=== PATIENT | female | born 1950 | race Caucasian/White ===

== ENCOUNTER 2018-12-29 15:17 | Inpatient (IN) | payer MEDICARE, BC ==
[~2018-12-29] VITALS: Ht 152.4 cm; Wt 94.8 kg
[~2018-12-29 15:17] MED LIST: ? B/P MED; ADULT LOW DOSE81 MG PO; B COMPLEX1 EACH PO; CENTRUM COMPLE1 EACH PO; CYCLOBENZAPRINE; DAILY VITAMIN; DARVOCET-N 1001 EACH PO; DIOVAN HCT 3201 EACH PO; GLUCOPHAGE XR500 MG PO; HYDROCODON-ACE1 EACH PO; LIPITOR; LIPITOR20 MG PO; METFORMIN; MOBIC15 MG PO; NEURONTIN 300M300 M2 PO; NORCO 5-325 TA1 EACH PO; PREDNISONE 20 M20 M1 PO; RELAFEN750 MG PO; VICODIN 5-5001 EACH PO; VITAMIN D-32000 UNIT PO; ZOLOFT; ZOLOFT100 MG PO
[2018-12-29 15:27] VITALS: BP 110/44
[2018-12-29] MEDS ORDERED: CLOMIPRAMINE HC25 M1 PO (15:33)
[2018-12-29] MEDS ORDERED: SYNTHROID75 MCG PO (15:34)
[2018-12-29] MEDS ORDERED: LEXAPRO 10 MG T10 M1 PO (15:34)
[2018-12-29] MEDS ORDERED: RAZADYNE 4 MG TA4 M1 PO (15:34)
[2018-12-29] MEDS ORDERED: MELATIN3 MG PO (15:35)
[2018-12-29] MEDS ORDERED: POTASSIUM AC PO (15:35)
[2018-12-29] MEDS ORDERED: TOLTERODINE TART4 MG PO (15:35)
[2018-12-29] MEDS ORDERED: DIOVAN 80 MG TA80 M1 PO (15:36)
[2018-12-29] MEDS ORDERED: ONDANSETRON HCL4 M2 PO (15:36)
[2018-12-29 15:47] LABS: ABSOLUTE EOSINOPHILS 0.2 thou/uL (0.0-0.7); ABSOLUTE MONOCYTES 0.3 thou/uL (0.0-1.2); ABSOLUTE NEUTROPHILS 3.8 thou/uL (1.6-8.1); BASOPHILS 0.9 %; EOSINOPHILS 3.3 %; HEMATOCRIT 43.6 % (37.0-47.0); HEMOGLOBIN 14.7 gm/dL (12.0-15.0); LYMPHOCYTES 18.5 %; MCH 30.3 pg (26.0-34.0); MCHC 33.7 g/dL (28.0-37.0); MCV 90.1 fL (80.0-100.0); MONOCYTES 5.5 %; MPV 8.9 fl. (7.2-11.1); NUCLEATED RBCS 0 /100WBC; PLATELET COUNT* 201 thou/uL (150-400); POLYS 71.8 %; RBC 4.84 mil/uL (4.20-5.00); RDW-CV 12.7 % (10.5-14.5); WBC 5.3 thou/uL (4.0-11.0)
[2018-12-29 15:53] LABS: APTT 25.7 Seconds (25.0-31.3); PROTIME 10.5 Seconds (9.20-11.50)
[2018-12-29 15:58] LABS: ANION GAP 8 mmol/L (7-16); BUN 17 mg/dL (7-18); CALCIUM 9.3 mg/dL (8.5-10.1); CHLORIDE 109 mmol/L (98-107); CO2 26 mmol/L (21-32); CREATININE 0.6 mg/dL (0.6-1.3); GLUCOSE 130 mg/dL (70-99); POTASSIUM 4.7 mmol/L (3.5-5.1); SODIUM 143 mmol/L (136-145)
[2018-12-29 16:01] LABS: ALBUMIN 3.4 g/dL (3.4-5.0); ALKALINE PHOSPHATASE 95 U/L (46-116); NT-PRO BRAIN NAT PEPTIDE 209 pg/mL (<300); SGOT 19 U/L (15-37); SGPT 24 U/L (30-65); TOTAL BILIRUBIN 0.4 mg/dL (<0.1-1.0); TOTAL PROTEIN 6.9 g/dL (6.4-8.2); TROPONIN-I LEVEL <0.06 ng/mL (<0.06)
[2018-12-29 16:25] LABS: URINE BILIRUBIN NEGATIVE (Negative); URINE BLOOD NEGATIVE (Negative); URINE CLARITY CLEAR; URINE COLOR YELLOW; URINE GLUCOSE-RANDOM NEGATIVE (Negative); URINE KETONES NEGATIVE (Negative); URINE LEUKOCYTES-REFLEX 1+ (Negative); URINE NITRITE-REFLEX NEGATIVE (Negative); URINE PROTEIN NEGATIVE (Negative); URINE UROBILINOGEN 0.2 E.U./dl (0.2-1.0)
[2018-12-29 16:34] LABS: HYALINE CASTS 4-10 Moderate /LPF (None Seen); SQUAMOUS >10 Many /LPF (0-3)
[2018-12-29 16:35] LABS: BACTERIA-REFLEX 1-9 Few /HPF (None Seen); CRYSTALS None Seen /LPF (None Seen); MUCUS None Seen strn/LPF (None Seen); URINE RBC None Seen /HPF (0-2); URINE WBC-REFLEX 0-5 Rare /HPF (0-5)
--- NOTE | 2018-12-29 18:58 | NUR ---
REPORT RECEIVED FROM DEION RN, AT BEDSIDE PT ALERT ORIENT TO SELF, FORGETFULNESS; SPOUSE VOICED CONCERN RELATED TO WEAKNESS AND RISK FOR FALL, REASSURED WE WILL PLACE HER CLOSE TO THE NURSES STATION
[2018-12-29 19:24] VITALS: BP 111/40
[2018-12-29 20:04] VITALS: BP 139/45
[2018-12-30 05:37] LABS: ABSOLUTE BASOPHILS 0.1 thou/uL (0.0-0.2); ABSOLUTE EOSINOPHILS 0.2 thou/uL (0.0-0.7); ABSOLUTE LYMPHOCYTES 2.2 thou/uL (0.8-5.3); ABSOLUTE MONOCYTES 0.6 thou/uL (0.0-1.2); ABSOLUTE NEUTROPHILS 3.1 thou/uL (1.6-8.1); EOSINOPHILS 3.2 %; HEMATOCRIT 37.9 % (37.0-47.0); HEMOGLOBIN 12.8 gm/dL (12.0-15.0); MCH 30.1 pg (26.0-34.0); MCHC 33.7 g/dL (28.0-37.0); MCV 89.2 fL (80.0-100.0); MONOCYTES 9.7 %; MPV 8.7 fl. (7.2-11.1); NUCLEATED RBCS 0 /100WBC; PLATELET COUNT* 175 thou/uL (150-400); POLYS 50.1 %; RBC 4.25 mil/uL (4.20-5.00); RDW-CV 12.5 % (10.5-14.5); WBC 6.1 thou/uL (4.0-11.0)
--- NOTE | 2018-12-30 05:40 | NUR ---
PATIENT IS ORIENTED TO PERSON, WAS CONFUSED TRYING TO CALL . SHE WAS NOT ABLE TO SLEEP GAVE HER MELATONIN AROUND 0100 AFTER CALLING FOR ORDER. SHE WAS CONFUSED ABOUT THE CATHETER AND HAVING TO USE THE RESTROOM. SHE WAS ABLE GET SOME REST AFTER THE MELATONIN. SHE REPORTED NO PAIN. ENCOURAGED FLUIDS AND REST. FALL PRECAUTIONS IN PLACE. WILL CONTINUE TO MONITOR.
[2018-12-30 05:50] LABS: CALCIUM 8.8 mg/dL (8.5-10.1); CREATININE 0.4 mg/dL (0.6-1.3); POTASSIUM 3.9 mmol/L (3.5-5.1)
[2018-12-30 07:55] VITALS: BP 110/40
--- NOTE | 2018-12-30 12:20 | NUR ---
SPOKE WITH PT.AND AT BEDSIDE. PT.CAN ANSWER QUESTIONS,MOSTLY ACCURATE. STATES CORRECT ANSWER IF INACCURATE. SHE HAS BECOME WEAK DURING THE SUMMER. PT. HAS A WALKER,CANE,SHOWER CHAIR,SIDE RAIL ON BED AND PLATFORM ON SIDE OF BED TO HELP HER GET IN AND OUT OF BED. DOES ALL OF THE CHORES AT HOME. DISCUSSED SNF WTIH THEM. PT.SAID THE ONE I WAS AT WAS F-----G BAD! THEY ARE BAS---DS! SAID THEY WERE NOT VERY ATTENTIVE OR HELPED HER THERAPY [place]. HE WOULD LIKE REFERRAL MADE TO [facility]. CM CALLED [facility] AND FAXED REFERRAL TO HER [phone]. WAITING OT EVAL DOCUMENTATION.
[2018-12-30] MEDS ORDERED: CLONAZEPAM 0.50.5 M1 PO (15:39)
[2018-12-30 16:00] VITALS: BP 129/77
--- NOTE | 2018-12-30 17:46 | NUR ---
PATIENT RESTING IN BED. PATIENT IS UP WITH ASSIST OF ONE WITH GAIT BELT AND WALKER. PATIENT DENIES ANY PAIN. BRICE REMOVED THIS AM. PATIENT IS INCONTINENT OF BOWEL AND BLADDER. PATIENT IS FORGETFUL AND ANXIOUS. PATIENT DENIES ANY NEEDS AT THIS TIME. CALL LIGHT WITHIN REACH.
--- NOTE | 2018-12-30 18:13 | EKG ---
[place] [address] ELECTROCARDIOGRAM REPORT Name: MERVIN YOUNG Room: [address] ADM IN .R.#: [id number] Admission: 12/29/18 Attend Phys: Yandel Longoria MD Discharge: Date of : 48 Report #: [id number] THIS REPORT FOR: //name// [facility] ED Test Date: 2018-12-29 Test Time: 15:28:32 Pat Name: MERVIN YOUNG Department: Room: [facility] Gender: F Counter Professional: MARIO : 1950 Requested By: Eligio Almaraz Order Number: [id number] MD: Moncho Salomon Measurements Intervals [place] Rate: 62 P: 40 TX: 153 QRS: 34 QRSD: 106 T: 75 QT: 415 QTc: 422 Interpretive Statements Sinus rhythm No previous ECG available for comparison Electronically Signed On 12-30-2018 18:13:30 CDT by Moncho Salomon [email or web address] <ELECTRONICALLY SIGNED> By: Moncho Salomon MD, [facility] 12/30/18 1813 1528 1528 Moncho Salomon MD, FACC /EPI
[2018-12-30 21:50] VITALS: BP 106/41
[2018-12-31 04:05] LABS: ABSOLUTE BASOPHILS 0.1 thou/uL (0.0-0.2); ABSOLUTE EOSINOPHILS 0.2 thou/uL (0.0-0.7); ABSOLUTE LYMPHOCYTES 2.5 thou/uL (0.8-5.3); ABSOLUTE MONOCYTES 0.6 thou/uL (0.0-1.2); ABSOLUTE NEUTROPHILS 2.4 thou/uL (1.6-8.1); EOSINOPHILS 4.2 %; HEMATOCRIT 37.3 % (37.0-47.0); HEMOGLOBIN 12.6 gm/dL (12.0-15.0); LYMPHOCYTES 43.1 %; MCH 30.6 pg (26.0-34.0); MCHC 33.7 g/dL (28.0-37.0); MCV 90.7 fL (80.0-100.0); MONOCYTES 9.7 %; MPV 9.1 fl. (7.2-11.1); NUCLEATED RBCS 0 /100WBC; PLATELET COUNT* 171 thou/uL (150-400); RBC 4.11 mil/uL (4.20-5.00); RDW-CV 12.2 % (10.5-14.5); WBC 5.8 thou/uL (4.0-11.0)
[2018-12-31 04:17] LABS: ALBUMIN 2.8 g/dL (3.4-5.0); CALCIUM 8.9 mg/dL (8.5-10.1); CREATININE 0.5 mg/dL (0.6-1.3); POTASSIUM 3.8 mmol/L (3.5-5.1); TOTAL BILIRUBIN 0.2 mg/dL (<0.1-1.0); TOTAL PROTEIN 5.9 g/dL (6.4-8.2)
--- NOTE | 2018-12-31 05:44 | NUR ---
PT CONFUSED & FORGETFUL, CRIES WITH NO REASON. PT DENIED PAIN. MEDS GIVEN ORDERED. PT PULLED HER IV AGAIN, AND DONT EVEN REMEMBER. HOURLY ROUNDINGS COMPLETED. WILL CONTINUE TO MONITOR.
[2018-12-31 07:45] VITALS: BP 115/33
[2018-12-31 10:24] VITALS: BP 115/33
[2018-12-31] MEDS ORDERED: VALPROIC ACID250 MG PO (14:16)
--- NOTE | 2018-12-31 17:27 | NUR ---
PATIENT RESTING IN BED. PATIENT DENIES ANY PAIN. PATIENT HAS BEEN CONFUSED DANIELA. PATIENT UNABLE TO GET UP TO CHAIR TODAY DUE TO INABILITY TO TAKE STEPS AND FEAR OF FALLING. PATIENT HAS GOOD APPETITE. DISCHARGE PENDING INSURANCE APPROVAL TO [facility]. PATIENT DENIES ANY NEEDS AT THIS TIME. CALLL LIGHT WITHIN REACH. BED ALARM ON.
[2018-12-31 20:10] VITALS: BP 137/32
--- NOTE | 2019-01-01 05:14 | NUR ---
PT ORIENTED TIMES 2-3, SLEEPING QUIETLY THROUGHT THE NIGHT. MEDS GIVEN ORDERED. NO C/O PAIN. PT UP TO THE COMMODE WITH MAX ASSIST. HOURLY ROUNDING, TURNS COMPLETED. WILL CONTINUE TO MONITOR.
[2019-01-01 08:00] VITALS: BP 119/54
--- NOTE | 2019-01-01 11:00 | NUR ---
PT.HAS DISCHARGE ORDERS TO GO TO SKILLED BED AT [facility]. NOTIFIED ZAY DUONG/[facility]. SHE WILL ARRANGE [facility] WITH SECURE TRANSORTATION FOR 1:00. FAXED DISCHARGE ORDERS,SUMMARY,MED LIST AND [id number] FORM TO HER AT [phone]. NOTIFIED PT.AND IN ROOM. GAVE A COPY OF HER DISCHARGE INSTRUCTIONS. CHART COPIED TO GO WITH PT. RIKY BLISS TO CALL REPORT.
[2019-01-01] MEDS ORDERED: KLONOPIN0.5 MG PO (11:13)
[2019-01-01 11:31] VITALS: BP 115/33
[2019-01-01] MEDS ORDERED: CEFUROXIME500 MG PO (11:42)
[2019-01-01 13:17] VITALS: BP 115/33
[2019-01-01] MEDS ORDERED: POTASSIUM40 MEQ/11 PO (14:04)
== END 2019-01-01 13:10 | DRG 689 ==
LOC: M.ERS 15:17 → M.TBA-ER 17:00 → M.ORTHSURG 17:00
PROVIDERS: Family Medicine; ADMIT Internal Medicine
DX: N39.0 Urinary tract infection, site not specified (principal); G93.41 Metabolic encephalopathy; Z68.41 Body mass index [BMI] 40.0-44.9, adult; E11.9 Type 2 diabetes mellitus without complications; I10 Essential (primary) hypertension; E78.00 Pure hypercholesterolemia, unspecified; F03.90 Unspecified dementia, unspecified severity, without behavioral disturbance, psychotic disturbance, mood disturbance, and anxiety; E66.01 Morbid (severe) obesity due to excess calories; M19.90 Unspecified osteoarthritis, unspecified site; Z87.81 Personal history of (healed) traumatic fracture; Z87.891 Personal history of nicotine dependence; Z79.899 Other long term (current) drug therapy

== ENCOUNTER 2019-02-16 09:35 | Inpatient (IN) | payer MEDICARE, BC, OTHER ==
[~2019-02-16] VITALS: Ht 162.6 cm; Wt 84.9 kg
[~2019-02-16 09:35] MED LIST changes: +CEFUROXIME500 MG PO; +CLOMIPRAMINE HC25 M1 PO; +CLONAZEPAM 0.50.5 M1 PO; +DIOVAN 80 MG TA80 M1 PO; +KLONOPIN0.5 MG PO; +LEXAPRO 10 MG T10 M1 PO; +MELATIN3 MG PO; +ONDANSETRON HCL4 M2 PO; +POTASSIUM AC PO; +POTASSIUM40 MEQ/11 PO; +RAZADYNE 4 MG TA4 M1 PO; +SYNTHROID75 MCG PO; +TOLTERODINE TART4 MG PO; +VALPROIC ACID250 MG PO
[2019-02-16 09:36] VITALS: BP 130/53
[2019-02-16 10:02] LABS: ABSOLUTE BASOPHILS 0.1 thou/uL (0.0-0.2); ABSOLUTE EOSINOPHILS 0.2 thou/uL (0.0-0.7); ABSOLUTE LYMPHOCYTES 1.7 thou/uL (0.8-5.3); ABSOLUTE MONOCYTES 0.3 thou/uL (0.0-1.2); ABSOLUTE NEUTROPHILS 2.5 thou/uL (1.6-8.1); BASOPHILS 1.1 %; EOSINOPHILS 3.8 %; HEMATOCRIT 46.1 % (37.0-47.0); LYMPHOCYTES 35.8 %; MCH 30.7 pg (26.0-34.0); MCHC 34.8 g/dL (28.0-37.0); MCV 88.2 fL (80.0-100.0); MONOCYTES 6.2 %; NUCLEATED RBCS 0 /100WBC; PLATELET COUNT* 198 thou/uL (150-400); POLYS 53.1 %; RBC 5.22 mil/uL (4.20-5.00); RDW-CV 13.1 % (10.5-14.5); WBC 4.7 thou/uL (4.0-11.0)
[2019-02-16 10:09] LABS: CALCIUM 10.1 mg/dL (8.5-10.1); CREATININE 0.8 mg/dL (0.6-1.3); POTASSIUM 3.5 mmol/L (3.5-5.1)
[2019-02-16 10:19] LABS: APTT 25.2 Seconds (25.0-31.3); INR 1.1
[2019-02-16 10:23] LABS: ALBUMIN 3.6 g/dL (3.4-5.0); TOTAL BILIRUBIN 0.5 mg/dL (<0.1-1.0); TOTAL PROTEIN 7.5 g/dL (6.4-8.2)
[2019-02-16 10:29] LABS: URINE BILIRUBIN NEGATIVE (Negative); URINE BLOOD NEGATIVE (Negative); URINE CLARITY CLEAR; URINE COLOR YELLOW; URINE GLUCOSE-RANDOM NEGATIVE (Negative); URINE KETONES 1+ (Negative); URINE LEUKOCYTES-REFLEX NEGATIVE (Negative); URINE NITRITE-REFLEX NEGATIVE (Negative); URINE PROTEIN NEGATIVE (Negative); URINE SPECIFIC GRAVITY >= 1.030 (1.005-1.030); URINE UROBILINOGEN 0.2 E.U./dl (0.2-1.0)
[2019-02-16 12:36] VITALS: BP 130/53
[2019-02-16 13:05] VITALS: BP 132/43
[2019-02-16 13:33] VITALS: BP 132/43
[2019-02-16] MEDS ORDERED: NAMENDA 10 MG T10 MG PO (13:46)
--- NOTE | 2019-02-16 15:37 | NUR ---
PT ADMITTED TO ROOM 213 AT APPROXIMATELY 1300 WITH AN ADMITTING DIAGNOSIS OF AMS, FALL. PT IS ALERT AND ORIENTED X 4 BUT CAN BE FORGETFUL. PT YELLS OBSCENITIES OUT AT TIMES. PT DENIES PAIN, N/V/D. ASSESSMENT COMPLETED CHARTED. HOURLY ROUNDING AND FALL PRECAUTIONS IN PLACE FOR PT SAFETY. CLWR.
[2019-02-16 15:46] VITALS: BP 103/45
--- NOTE | 2019-02-16 16:29 | EKG ---
[place] [address] ELECTROCARDIOGRAM REPORT Name: MERVIN YOUNG Room: [address] ADM IN .R.#: [id number] Admission: 02/16/19 Attend Phys: Brynn Huston MD Discharge: Date of : 48 Report #: [id number] THIS REPORT FOR: //name// [facility] ED Test Date: 2019-02-16 Test Time: 10:15:41 Pat Name: MERVIN YOUNG Department: Room: [facility] Gender: F Product Representative: NAYE : 1950 Requested By: Eligio Almaraz Order Number: [id number] MD: Moncho Salomon Measurements Intervals [place] Rate: 68 P: 60 TN: 168 QRS: 15 QRSD: 102 T: 95 QT: 428 QTc: 456 Interpretive Statements Sinus rhythm Borderline low voltage, extremity leads Nonspecific T abnormalities, lateral leads Compared to ECG 12/29/2018 15:28:32 T-wave abnormality now present Electronically Signed On 02-16-2019 16:29:37 CDT by Moncho Salomon [email or web address] <ELECTRONICALLY SIGNED> By: Moncho Salomon MD, FACC 02/16/19 1629 1015 1015 Moncho Salomon MD, FACC /EPI
[2019-02-16 20:00] VITALS: BP 101/33
[2019-02-17] VITALS: BP 89/45
[2019-02-17 04:22] VITALS: BP 90/31
--- NOTE | 2019-02-17 05:11 | NUR ---
ASSUMED PATIENT CARE AT 1900. PATIENT ALERT TIMES 2-3. VERY ANXIOUS. DOES NOT LIKE TO TURN, VERY RESISTENT. NO COMPLAINTS OF PAIN OR DISCOMFORT NOTED. LABORATORY CHEMICAL ASSISTANT AND HOURLY ROUNDING COMPLETED DOCUMENTED.
[2019-02-17 05:20] LABS: HEMATOCRIT 40.6 % (37.0-47.0); MCH 29.9 pg (26.0-34.0); MCHC 33.9 g/dL (28.0-37.0); MCV 88.3 fL (80.0-100.0); MPV 9.6 fl. (7.2-11.1); RBC 4.6 mil/uL (4.20-5.00); RDW-CV 12.9 % (10.5-14.5); WBC 6.5 thou/uL (4.0-11.0)
[2019-02-17 05:40] LABS: ALBUMIN 2.8 g/dL (3.4-5.0); CREATININE 0.4 mg/dL (0.6-1.3); MAGNESIUM 1.9 mg/dL (1.8-2.4); POTASSIUM 3.3 mmol/L (3.5-5.1); TOTAL BILIRUBIN 0.5 mg/dL (<0.1-1.0); TOTAL PROTEIN 6.1 g/dL (6.4-8.2)
[2019-02-17 05:49] LABS: HEMOGLOBIN 13.8 gm/dL (12.0-15.0)
[2019-02-17 08:28] VITALS: BP 100/49
--- NOTE | 2019-02-17 09:04 | NUR ---
ASSUMED CARE OF PT AROUND 0730 THIS AM. REFER TO ASSESSMENT. PT IS A&OX4 THIS AM. FLUIDS INFUSING WITHOUT DIFFICULTY. HELD AM [place] D/T SOFT BLOOD PRESSURE. ANTICIPATE CT PELVIS THIS SHIFT. NO C/O PAIN THIS AM. NO OTHER CONCERNS AT THIS TIME. CLWR. WCTM.
--- NOTE | 2019-02-17 11:09 | NUR ---
CM spoke with Pt's in [facility]. Pt resides at home with and dtr. Per , Pt has alzheimer's and has been declining over the past few months. Pt requires assistance with all IADLs, per it takes both he and his dtr for assist. Pt has a walker that she can use as well as a transport chair. Pt is current with [facility] and states that [facility] has been working on gettin Pt a hospital bed for home use. Hx of skilled at [facility] [place]. is hopeful that Pt can go to skilled at [facility] at [place] to fax initial referral and check for skilled days available. is also wanting to see if insurance will cover a wc. Pt also has a commode at home. Following.
[2019-02-17 11:48] VITALS: BP 114/57
[2019-02-17 15:51] VITALS: BP 114/48
--- NOTE | 2019-02-17 16:39 | NUR ---
PT PROGRESSING TOWARDS GOALS. UP TO CHAIR WITH PT/OT. DIFFICULT TO TRANSFER DUE TO PT UNABLE TO FOLLOW DIRECTIONS. PT TEARFUL AND FEARS FALLING. REQUIRES ASSIST X2-3 OR MECHANICAL TRANSFER. PT DOWNGRADED TO M/S STATUS. NO OTHER CONCERNS AT THIS TIME. CLWR. WCTM.
[2019-02-17 20:00] VITALS: BP 115/45
[2019-02-18 00:30] VITALS: BP 117/36
--- NOTE | 2019-02-18 05:01 | NUR ---
PT HAS RESTED T/O NIGHT WITHOUT COMPLAINT. PT IS VERY FEARFUL OF FALLING AND EVEN HAS ISSUES WITH TURNING IN BED. PT WAS ABLE TO CALM VIA BREATHING TECHNIQUES AND ROLL ONTO LEFT SIDE WITHOUT YELLING. PT PROGRESSING TOWARDS GOALS. CALL LIGHT IN REACH
[2019-02-18 08:00] VITALS: BP 132/54
--- NOTE | 2019-02-18 08:00 | NUR ---
AM ASSESSMENT COMPLETE, DEFER TO COMPUTER CHARTING. ORIENTED TO SELF - DENIES PAIN, DIZZINESS OR NAUSEA AT THIS TIME. ASSIST GIVEN WITH TRAY SET UP, TOLERATING DIET. CALL LIGHT WITHIN REACH. WILL MONITOR.
--- NOTE | 2019-02-18 09:53 | NUR ---
Pt is current with [facility], plan for and Pt to have a meeting with [facility] this afternoon.
--- NOTE | 2019-02-18 16:08 | NUR ---
[facility] CALLING TO CHECK ON PATIENT - WANTING TO NOTIFY TEAM FOR HOME CARE IF NEEDED.
[2019-02-18 16:09] VITALS: BP 97/42
--- NOTE | 2019-02-18 16:28 | NUR ---
CONDITION UNCHAGED AT THIS TIME, REMAINS CONFUSED - OREINTED TO SITUATION AT TIMES. PARTICIPATED WITH THERAPY TODAY - YELLING OUT WHEN TRANSFERING FEAR OF FALLING - REASSURANCE GIVEN. UP IN CHAIR THIS AFTERNOON BACK IN BED AT THIS TIME. IV FLUIDS DC'D - TOLERATING DIET. CALL LIGHT WITHIN REACH, BED ALARM ON FOR SAFETY. WILL CONTINUE WITH PLAN OF CARE.
[2019-02-18 20:49] VITALS: BP 101/45
[2019-02-19] VITALS: BP 103/52
--- NOTE | 2019-02-19 07:03 | NUR ---
PT IS ABLE TO COMMUNICATE HER NEEDS TO STAFF WITH MINOR DIFFICULTY; SHE IS CONFUSED AT TIMES AND SEEMS TO HAVE SOME COGNITIVE DELAY. SHE HAS DENIED THE NEED FOR PAIN MEDICATION UP TO THIS TIME. MED/ SURG STATUS, NON-TELEMETRY AT THIS TIME.
[2019-02-19 07:10] VITALS: BP 111/53
--- NOTE | 2019-02-19 08:51 | NUR ---
Pt does not meet acute rehab criteria. Plan home at dc with , private duty and [facility]. Spoke with Daisy from [facility], hospital bed and wc can be delivered to the home today. Anticipate dc today. Following.
[2019-02-19 09:52] VITALS: BP 111/53
--- NOTE | 2019-02-19 10:30 | NUR ---
INITAL ASSESSMENT COMPLETED CHARTED. VSS. PT DENIES PAIN. PT DENIES ANY FURTHER NEEDS AT THIS TIME. HOURLY ROUNDING AND FALL PRECAUTIONS IN PLACE. CLWR.
[2019-02-19] MEDS ORDERED: HOME MEDICATION PO (11:49)
[2019-02-19 14:07] VITALS: BP 111/53
== END 2019-02-19 16:45 | disposition home health service (06) | DRG 605 ==
LOC: M.ERS 09:35 → M.2W 11:35 → M.TBA-ER 11:35 → M.2W 13:00
PROVIDERS: Family Medicine; ADMIT Internal Medicine
DX: S70.02XA Contusion of left hip, initial encounter (principal); E86.0 Dehydration; E11.9 Type 2 diabetes mellitus without complications; I10 Essential (primary) hypertension; E78.00 Pure hypercholesterolemia, unspecified; F03.90 Unspecified dementia, unspecified severity, without behavioral disturbance, psychotic disturbance, mood disturbance, and anxiety; E78.5 Hyperlipidemia, unspecified; F41.1 Generalized anxiety disorder; W18.39XA Other fall on same level, initial encounter; Y93.89 Activity, other specified; Y92.89 Other specified places as the place of occurrence of the external cause; Z87.891 Personal history of nicotine dependence; Y99.8 Other external cause status; F32.9 Major depressive disorder, single episode, unspecified